=== PATIENT | male | born 1970 | race Two or more races ===

== ENCOUNTER 2024-05-06 11:43 | Emergency (ER) | payer MEDICAID, SELFPAY ==
--- NOTE | ~2024-05-06 | XR_ITS ---
EXAMINATION: XR CHEST CLINICAL INFORMATION: Cough, history of HIV. COMPARISON: Chest radiograph 05/17/2012. TECHNIQUE: 2 views of the chest were obtained. FINDINGS: Normal appearance of the cardiomediastinal silhouette. No focal consolidation, pleural effusion or pneumothorax. No acute osseous findings. XR/XR chest 2V IMPRESSION: No acute cardiopulmonary findings. Electronically signed by: Sofia Canales MD 05/06/2024 12:19 PM EDT
[2024-05-06 11:54] VITALS: BP 96/60; PULSE 65; RESP 16; TEMP 36.4; O2SAT 96; BMI 27.6
--- NOTE | 2024-05-06 12:01 | ED_ITS ---
HPI - General Adult General Chief complaint: Upper Respiratory Symptoms Stated complaint: sore throat Time Seen by Provider: 05/06/24 12:11 Source: patient and family Mode of arrival: ambulatory Limitations: no limitations History of Present Illness ED Provider: alphonso GUTIERREZ narrative: Patient is a 54-year-old male with history of HIV presenting to the emergency department with complaint of cough productive of brown sputum for the past 3 days as well as subjective fevers at night. Reports sick contacts at worship. Denies chest pain, palpitations, dyspnea. Denies smoking. Denies sore throat, ear pain, nasal congestion, nausea, vomiting, diarrhea. Has taken Tylenol for the fever. MD complaint: cough Onset (ago): day(s) Treatments prior to arrival: other Related Data Previous Rx's ?Medication ?Instructions ?Recorded benzonatate 100 mg capsule 100 mg PO TID PRN cough #20 caps 05/06/24 Allergies Allergy/AdvReac Type Severity Reaction Status Date / Time sulfamethoxazole Allergy Mild HIVES Verified 05/06/24 12:04 [From Bactrim] trimethoprim [From Bactrim] Allergy Mild HIVES Verified 05/06/24 12:04 Review of Systems Review of Systems: as per HPI. Yes all other systems are reviewed and are negative Constitutional: Constitutional: Reports as per HPI [facility] Social History Social History (System 01/26/24 @ 14:32 by Kacey Conklin) Advance Directives: No Advance Directives Information Provided: No Do you have a plan to hurt others: No Plan Physical Exam ED Vital Signs: Vital Signs - 24 hr 05/06/24 11:54 Temperature 97.6 F Pulse Rate 65 Respiratory Rate 16 Blood Pressure 96/60 Pulse Oximetry 96 Oxygen Delivery Method Room Air BMI result Body Mass Index 27.6 Vital signs have been reviewed and appear to be correct. Blood pressure normal. Heart rate normal. Respiratory rate normal. Temperature normal. Oxygen saturation normal. Const General: cooperative, healthy appearing and no acute distress Orientation/consciousness: oriented to person, oriented to place, oriented to time and patient oriented x3 Limitations: no limitations HENMT Head: Yes normocephalic and Yes atraumatic Ears: external ears normal General nose exam: Normal external nose present Face and sinus: Yes face symmetric Mouth: oropharynx normal and moist mucous membranes Throat: Yes uvula midline Eyes Pupils: Equal, round and reactive pupils present Neck Neck: Yes normal visual inspection and Yes supple Resp Effort & Inspection: normal respiratory effort and able to speak in complete sentences Auscultation: clear to auscultation bilaterally Cardio Rate: regular rate Rhythm: regular rhythm Heart sounds: S1 normal heart sound present and S2 normal heart sound present GI Palpation (GI): Soft to palpation and nontender Auscultation: normoactive bowel sounds General: Yes no CVA tenderness Back/Spine/Pelvis Back: no CVA tenderness Skin General skin exam: elasticity normal and turgor normal Neuro General: oriented to person, oriented to place, oriented to time, patient oriented x3, moves all extremities, no focal motor deficits and CN's II-XI intact bilaterally Cranial nerves: Yes Equal, round and reactive pupils present Cognition (Neuro): normal cognition Extrem General: Yes full ROM, Yes no pedal edema and Yes no calf tenderness Psych Mental Status: mental status grossly normal Affect: normal affect Thought process: Normal thought process present Course Course Course Narrative: This is an RME: Additional HPI, ROS, PE not included below will be deferred to primary provider. RME assessment and note performed by: Layne Dowell PA-C This is a 26-kchi-wht-male, with a hx of HIV, who presents to the ER with complaints of productive cough x 3 days. Reporting subjective fevers at night. No CP or SOB. no sick contacts. Plan: Xray, viral swabs Medical Decision Making Medical Decision Making MDM Narrative: Patient is a 54-year-old male with history of HIV presenting to the emergency department with complaint of cough productive of brown sputum for the past 3 days as well as subjective fevers at night. On exam patient is awake, A+Ox3, VS WNL, afebrile, normal neurological exam without focal deficits, physical exam findings as above. Given reported symptoms and physical exam findings, initial differential includes viral illness, bronchitis, pneumonia. Viral serology negative. X-ray chest notable for no evidence of pneumonia. My interpretation is in agreement with the radiologist's interpretation. Patient updated on results and all questions answered. Discussed with patient that symptoms are likely due to viral illness which will resolve on its own with time. Will send prescription for benzonatate for cough. Advised patient to ensure adequate rest and adequate fluid intake. Return precautions discussed at bedside. Patient verbalized understanding of and agreement plan. Differential Diagnosis Differential Diagnoses: The differential diagnosis associated with the presentation includes As per [facility]. Lab Data [facility] Lab Attestation statement: I reviewed the patient's lab results. As per [facility]. Labs: Lab Results 05/06/24 Range/Units 12:08 Influenza Type A (PCR) NEGATIVE (Negative) Influenza Type B (PCR) NEGATIVE (Negative) RSV RNA Qual (PCR) NEGATIVE (Negative) SARS-CoV-2 RNA (RT-PCR) NEGATIVE (Negative) Independent Interpretation I performed an independent interpretation of an: Plain X-Ray Interpretation: No evidence of pneumonia on chest x-ray Radiology Impression Discussion of test interpretation with radiology: I have reviewed the radiologist's reading. Radiologist Impression: XR/XR chest 2V IMPRESSION: No acute cardiopulmonary findings. External Record Review External record reviewed: Inpatient record, Office record and Outpatient record Prescription Management I considered prescription management with: Other Discharge Plan Discharge Clinical Impression: Viral infection Patient Disposition: Home, Self-Care Instructions: Viral Syndrome (ED) Additional Instructions: You were evaluated in the emergency department today for cough. Your Covid, flu, and rsv tests were all negative. Your x-ray did not show evidence of pneumonia. Your symptoms are likely related to a viral illness which will resolve on its own with time and rest. You should ensure adequate fluid intake, and can use Tylenol 650 mg or ibuprofen 600 mg every 6 hours as needed for fever or discomfort. You are being prescribed benzonatate for cough which you can take every 8 hours as needed. Please keep this medication out of the reach of children. Please follow-up with your primary care provider this week. Return to the emergency department if you develop chest pain, worsening shortness of breath, difficulty swallowing, fever 100.4? F or greater or any other concerning symptoms. Prescriptions: New benzonatate 100 mg capsule 100 mg PO TID PRN (Reason: cough) Qty: 20 0RF Print Language: Swedish
[2024-05-06 12:52] LABS: Influenza A PCR NEGATIVE (Negative); Influenza B PCR NEGATIVE (Negative); Resp Syncy Virus RNA Qual PCR NEGATIVE (Negative); SARS COV2 PCR INHOUSE NEGATIVE (Negative)
[2024-05-06 13:33] VITALS: BP 96/60; PULSE 65; RESP 16; TEMP 36.4; O2SAT 96
== END 2024-05-06 13:33 | disposition home or self-care (01) ==
PROVIDERS: Physician Assistant Medical; Emergency Provider Emergency Medicine Emergency Medical Services
DX: B34.9 Viral infection, unspecified (principal); R05.9 Cough, unspecified; R50.9 Fever, unspecified; B20 Human immunodeficiency virus [HIV] disease; Z03.818 Encounter for observation for suspected exposure to other biological agents ruled out
CPT/HCPCS: 0241U; 71046; 99282; 99283

== ENCOUNTER 2024-09-20 12:01 | Emergency (ER) | payer MEDICAID, SELFPAY ==
--- NOTE | ~2024-09-20 | XR_ITS ---
CLINICAL HISTORY: pain 1 view abdomen Comparison: None Findings: No pneumoperitoneum or pneumatosis. No abnormal calcifications. No acute fractures. IMPRESSION: Normal bowel gas pattern This document has been electronically signed by: Bryan Rivera MD on 09/21/2024 01:26:42
[2024-09-20 12:30] VITALS: BP 102/65; PULSE 60; RESP 20; TEMP 36.5; O2SAT 96; BMI 28.4
[2024-09-20 13:11] LABS: MANUAL DIFF FLAG NO
[2024-09-20 13:14] LABS: Basophils Percent Auto 0.2 % (0-2); Eosinophils Absolute Auto 0.1 X10*3/uL (0.0-0.4); Hematocrit 45.2 % (42.0-52.0); Imm Gran Abs Auto 0.01 X10*3/uL (0.00-0.03); Imm Gran Pct Auto 0.2 % (0.0-0.4); Lymphocytes Absolute Auto 2.2 X10*3/uL (1.2-4.9); Lymphocytes Percent Auto 36.3 % (20-40); Mean Corpuscular HGB Conc 33.2 g/dl (31.0-36.0); Mean Corpuscular Volume 75.5 fL (80.0-98.0); Mean Platelet Volume 9.6 fL (9.4-12.4); Monocytes Absolute Auto 0.9 X10*3/uL (0.1-1.2); Monocytes Percent Auto 14.3 % (2-11); Neutrophils Absolute Auto 2.8 x10*3/uL (2.0-8.3); Platelet Count 209 X10*3/uL (160-400); Red Blood Count 5.99 X10*6/uL (4.60-5.80); Red Cell Distribution Width 13.1 % (11.0-16.0); White Blood Count 5.9 X10*3/uL (4.8-10.8)
[2024-09-20 13:38] LABS: Alanine Aminotransferase 33 U/L (0-40); Albumin Level 4.3 g/dL (3.5-5.0); Alkaline Phosphatase 61 U/L (39-117); Anion Gap 11 (12-20); Aspartate Amino Transferase 44 U/L (5-37); Bilirubin Direct 0.1 mg/dL (0.0-0.5); Bilirubin Total 0.5 mg/dL (0.0-1.0); Blood Urea Nitrogen 15 mg/dL (9-16); Calcium 9.1 mg/dL (8.4-10.2); Carbon Dioxide 26 mmol/L (22-29); Chloride 106 mmol/L (96-108); Creatinine Clr Calc Pharmacy 74.2; Estimated Glomerular Filt Rate > 60; Glucose Random 87 mg/dL (60-115); Lipase 33 U/L (8-78); Potassium 4.2 mmol/L (3.3-5.1); Sodium 139 mmol/L (135-145); Total Protein 7.8 g/dL (6.5-8.0)
[2024-09-20 13:51] LABS: Influenza A PCR NEGATIVE (Negative); Influenza B PCR NEGATIVE (Negative); Resp Syncy Virus RNA Qual PCR NEGATIVE (Negative); SARS COV2 PCR INHOUSE NEGATIVE (Negative)
--- OUTSIDE RECORDS SUMMARY | 2024-09-20 14:34 | XMS_ITS | Encounter Summary ---
Author Organization [facility] Address [address] [place] [address] Care Team Providers Care On Line Csr Name Role Phone Zari Gibson PA-C Primary Care Provider [phone] Encounter Details Date Type Department Care Team ([facility] st Contact Info) Description 06/11/2023 / TELEPHONE [facility], [facility] [address] [place] [phone] Kyrie Muniz [address] [place] [address] Opioid type dependence, unspecified (Primary Dx); Former smoker; Posttraumatic stress disorder Social History Tobacco Use Types Packs/Day Years Used Date Smoking Tobacco: Former Cigarettes 0.5 43.1 S tarted: 08/09/1981 Smokeless Tobacco: Never Alcohol Use Standard Drinks/Week Comments Not Currently 0 (1 standard drink = 0.6 oz pur e alcohol) Social Connections Answer Date Recorded Connectedness 0 12/29/2022 Financial Resource Strain Answer Date R ecorded Financial Resource Strain 0 2022 Stress Answer Date Recorded Stress 0 12/29/2022 Physical Activity Answer Date Recorded Physical Activity 0 03/27/2022 Food Insecurity Answer Date Recorded Food 0 04/11/2022 Transportation Needs Answer Date Record ed Transportation 0 12/29/2022 Housing Stability Answer Date Recorded Housing 0 12/29/2022 Safety and Environment Answer Date Jonatan rded Safety 0 04/11/2022 Utilities Answer Date Recorded Utilities 0 04/11/2022 Employment Answer Date Recorded Stress 0 12/29/2022 Sex and Gender Information Value Date Recorded Sex Assigned at Male 04/11/2022 7:58 AM PDT Legal Sex Male 10:14 AM PDT Gender Identity Male 04/11/2022 7:58 AM PDT Sexual Orientation Straight 04/28/2023 7: 59 AM PDT documented as of this encounter Nursing Notes * Kyrie Muniz - 06/11/2023 2:18 PM EDT 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 Plan of Treatment Upcoming Encounters Date Type Department Care Team (Late st Contact Info) Description 09/21/2024 2:00 PM EST BH/[facility] Visits [address] [phone] Patti Whitaker [address] [place] [id number] 09/26/2024 3:30 PM EST BH/[facility] Visits [address] [phone] Matthew Dalal LCSW [address] [place] [phone] 10/24/2024 2:00 PM EDT BH/[facility] Visits [address] [phone] [address] documented as of this encounter Visit Diagnoses Diagnosis Opioid type dependence, unspecified- Primary Former smoker Personal history of tobacco use, presenting hazards to health Posttraumatic stress disorder documented in this encounter Additional Health Concerns Assessment Noted Time PHQ-9 Depression Total Score: 5 09/24/19 23 10:00 AM PST documented as of this encounter Care Teams On Line Csr Relationship Specialty Start Date End Date Zari Gibson PA-C [address] [place] [id number] PCP - General Internal Medicine 04/07/22 documented as of this encounter
--- OUTSIDE RECORDS SUMMARY | 2024-09-20 14:34 | XMS_ITS | Clinical Summary ---
Author Organization [facility] Address [address] [place] [address] Care Team Providers Care Junior Accountant Bookkeeper Name Role Phone Zari Gibson PA-C Primary Care Provider Source Comments PLEASE NOTE, if this patient is a minor, it may be UNLAWFUL to discuss sensitive information that is contained in these records (such as FAMILY PLANNING, MENTAL HEALTH or SUBSTANCE ABUSE) with the minor patient's parent or other person without the patient's specific authorization.[facility] Allergies Active Allergy Reactions Criticality Noted Date Comments Aztreonam 10/12/2022 Dhqgsbovc-Iumnlhuvftpz-Ouiskuc Rash Medium 04/16 Erythromycin 10/12/2022 Hydrochlorothiazide 10/12/2022 Other reaction(s): unknown Latex 10/12/2022 Nystatin 10/12/2022 Other reaction(s): Allergy to sulfa drugs Penicillin 10/12/2022 Other reaction(s): Rash Sulfa (Sulfonamide Antibiotics) Unknown 03/10 Zidovudine Rash Low 12/28/2023 Medications diclofenac sodium (VOLTAREN) 1 % gelIndications:A rthralgia, unspecified joint Apply 2 g topically 2 (two) times daily 100 g 1 2 Active sofosbuvir-velpa tasvir (EPCLUSA) 400-100 mg tab Take 1 Tablet by mouth once daily 28 Tablet 2 3 Active nicotine (NICODERM CQ) 21 mg/24 hr patchIndications :Tobacco use Place 1 Patch onto the skin once daily (every 24 hours) 28 Patch 3 Active nicotine, polacrilex, (NICORETTE) 4 mg gumIndications:T obacco use Take 1 Each by mouth as needed for smoking cessation 110 Each 3 Active clotrimazole-bet amethasone (LOTRISONE) 1-0.05 % creamIndications :Rash Apply topically 2 (two) times daily 15 g 3 Active tetrahydrozoline 0.05 % ophthalmic solutionIndicati ons:Dry eyes Place 1 Drop into both eyes 4 (four) times daily as needed for irritation 15 mL 3 Active triamcinolone (KENALOG) 0.025 % creamIndications :Rash Apply topically 2 (two) times daily 15 g 3 Active clotrimazole (LOTRIMIN) 1 % creamIndications :Tinea cruris Apply a small amount to groin area BID 30 g 2 3 Active emollient (DERMABASE,VANIC REAM) creaIndications: Dry skin Apply 2 g topically as needed (dry skin) 453 g 6 3 Active docusate sodium (COLACE) 100 mg capsuleIndicatio ns:Constipation, unspecified constipation type Take 1 Capsule by mouth 2 (two) times daily 180 Capsule 3 Active albuterol HFA 90 mcg/actuation inhalerIndicatio ns:SOB (shortness of breath) Inhale 2 Puffs into the lungs every 4 to 6 (four to six) hours as needed for shortness of breath 6.7 g 1 3 Active tamsulosin (FLOMAX) 0.4 mg 24 hr capsuleIndicatio ns:Benign prostatic hyperplasia with lower urinary tract symptoms, symptom details unspecified Take 1 Capsule by mouth nightly at bedtime 90 Capsule 1 3 Active naloxone (NARCAN) 4 mg/actuation nasal sprayIndications :Opioid use disorder Place 1 [place] into the nostril(s) as needed for opioid reversal 1 Each 5 4 Active ciclopirox (PENLAC) 8 % solutionIndicati ons:Onychomycosi s Apply topically nightly at bedtime 6.6 mL 2 4 Active FLUoxetine (PROZAC) 10 mg capsuleIndicatio ns:Mood disorder (HCC-CMS) Take 1 Capsule by mouth once daily for 180 days 30 Capsule 5 4 Active QUEtiapine (SEROQUEL) 50 mg tabletIndication s:Mood disorder (HCC-CMS) Take 1 Tablet by mouth nightly at bedtime for 180 days 30 Tablet 5 4 Active abacavir-doluteg ravir-lamivud (TRIUMEQ) 600-50-300 mg tabIndications:H IV infection, unspecified symptom status (HCC-CMS) Take 1 Tablet by mouth once daily 30 Tablet 11 4 Active buprenorphine-na loxone (SUBOXONE) 8-2 mg SL filmIndications: Opioid use disorder Place 1 Strip under the tongue 3 (three) times daily 84 Each 5 Active buprenorphine-na loxone (SUBOXONE) 8-2 mg SL filmIndications: Opioid use disorder Place 1 Strip under the tongue 3 (three) times daily 84 Each 4 025 Discontin ued(Reord er (E-Cancel Not Sent)) Active Problems Problem Noted Date Diagnosed Date BPH (benign prostatic hyperplasia) 07/09/2023 Hepatitis B core antibody positive 08/21/2022 History of tobacco use 08/21/2022 Chronic hepatitis C without hepatic coma (HCC-CMS), treatment experienced 06/2022. genotype 3, F3 disease, SVR 05/202306/23/2022 Overview (06/23/2022): HCV treatment initiation Patient: [facility]: [id number] Age: 46 years Sex: Male : 1970 Associated Diagnoses: None Author: Gerardo VANEGAS, Malissa Samano Visit Information History of Present Issues/Illness pt here for f/up HCV GT 3, F2 Fibrosure, VL > 695,000 was due to start HCV treatment last week but balked at having weekly f/up appts linked to suboxone: was not sure he wanted treatment after all pt here today having decided he is ready for HCV treatment, willing to come weekly for f/up w/ suboxone refills weekly during course of treatment meds discussed with patient regimen is Sovaldi 400 mg QD+ daclasvir 60 mg QD taken together once daily pt urged to take at same time as either HAART or suboxone to improve adherence med boc given with one week fillof medication plus 2 day emergency supply med box and meds reviewed pt given suboxone script x 1 week plan: RTC 1 week Opioid type dependence, unspecified 04/06/2022 HIV infection ([facility]) 09/[birth year]/1981 Resolved Problems Problem Noted Date Diagnosed Date Resolved Date Candidiasis of mouth 10/12/2022 023 Dysphagia 10/12/2022 10/12/2022 Genital herpes simplex 10/12/202210/12 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 0 10/12/2022 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 10/12/2022 Encounters Date Type Department Care Team Description 08/29/2024 Travel 08/24/2024 / TELEPHONE [address] [phone] Patti Whitaker Opioid type dependence, unspecified (Primary Dx); Former smoker; Posttraumatic stress disorder; Uncomplicated opioid dependence ([facility]); Encounter for long-term opiate analgesic use 08/03/2024 2:45 PM EST / Visits [address] [address] Matthew Dalal LCSW Opioid type dependence, unspecified (Primary Dx); Former smoker; Posttraumatic stress disorder; Uncomplicated opioid dependence ([facility]); Encounter for long-term opiate analgesic use 07/27/2024 / TELEPHONE [address] [address] Patti Whitaker Opioid type dependence, unspecified (Primary Dx); Former smoker; Posttraumatic stress disorder; Uncomplicated opioid dependence ([facility]); Encounter for long-term opiate analgesic use 07/25/2024 11:00 AM EST Immunizations [address] [address] Ambreen Wheeler RN Immunization due (Primary Dx) 07/25/2024 Travel 06/30/2024 10:30 AM EST / Visits [address] [address] Lynne Choudhury RN Uncomplicated opioid dependence ([facility]) (Primary Dx); Opioid type dependence, unspecified; Former smoker; Posttraumatic stress disorder; Encounter for long-term opiate analgesic use 06/30/2024 Travel 06/29/2024 / TELEPHONE [facility] [address] [place] [address] Patti Whitaker Opioid type dependence, unspecified (Primary Dx); Former smoker; Posttraumatic stress disorder; Uncomplicated opioid dependence (HCC-CMS); Encounter for long-term opiate analgesic use 06/22/2024 Case Management Visit [id number] [place] [address] Patricia Gramajo MA 06/20/2024 1:45 PM EST / Visits [facility] [address] [place] [address] Matthew Dalal LCSW Opioid type dependence, unspecified (Primary Dx); Former smoker; Posttraumatic stress disorder; Uncomplicated opioid dependence ([facility]); Encounter for long-term opiate analgesic use 06/20/2024 Travel from Last 3 Months Immunizations Name Administration Dates Next Due Flu, Preservative Free 05/06/2022 INFLUENZA, SEASONAL, INJECTABLE 08/25/2017,06/02,07/09/2011 Influenza (FLUBLOK),recombinant,injectable,preservati ve Free 05/26/2024 MENINGOCOCCAL ACWY, UNSPECIFIED 10/18/2017,08/25 PNEUMOCOCCAL CONJUGATE PCV 13 08/25/2017 PNEUMOCOCCAL POLYSACCHARIDE PPV23 05/06/2022,,10/16/2006 [facility] State Funded Flu Vaccine 05/03/2012 TDAP 08/25/2017,05/12/2012 Td (adult) unspecified 10/24/2009 ZOSTER VACCINE, RECOMBINANT (SHINGRIX) ,05/26/2024 Family History Medical History Relation Name Comments Alcohol/Drug Abuse Brother Depression Brother Alcohol/Drug Abuse Father Diabetes Father Stomach Cancer Maternal Aunt Alcohol/Drug Abuse Maternal Uncle Dementia Maternal Uncle Lung Cancer Maternal Uncle Alzheimer's Disease Mother Hypertension Mother Alcohol/Drug Abuse Paternal Uncle Relation Name Status Comments Brother Father Alive Maternal Aunt Alive Maternal Uncle Alive Mother Alive Paternal Uncle Social History Tobacco Use Types Packs/Day Years Used Date Smoking Tobacco: Former Cigarettes 0.5 43.1 S tarted: 08/09/1981 Smokeless Tobacco: Never Tobacco Cessation:Counseling Given: Yes Alcohol Use Standard Drinks/Week Comments Not Currently [...] Orientation Straight 04/28/2023 7: 59 AM PDT COVID-19 Exposure Response Date Recorded In the last 10 days, have yo u been in contact with someone who was confirmed or suspected to have Coronavirus/COVID-19? No / Unsure 08/29/2024 3:14 PM EST Last Filed Vital Signs Vital Sign Reading Time Taken Comments Blood Pressure 125/82 08/29/2024 4:21 PM EST Pulse 84 08/29/2024 4:21 PM EST Temperature 36.6 ??C (97.9 ??F) 05/26/2024 9:07 AM ED T Respiratory Rate 14 05/26/2024 9:07 AM EDT Oxygen Saturation 97% 08/29/2024 4:21 PM EST Inhaled Oxygen Concentration - - Weight 68.5 kg (151 lb) 05/26/2024 9:07 AM EDT Height 160 cm (5' 3 ) 05/26/2024 9:07 AM EDT Body Mass Index 26.75 05/26/2024 9:07 AM EDT Plan of Treatment Upcoming Encounters Date Type Department Care Team (Late st Contact Info) Description 09/21/2024 2:00 PM EST BH/MH Visits [facility] [address] [place] [phone] Sherman Patti [address] [place] [phone] 09/26/2024 3:30 PM EST BH/MH Visits [facility] [address] [place] [address] Matthew Dalal LCSW [address] [place], [place] [phone] 10/24/2024 2:00 PM EDT BH/MH Visits [facility] [address] [place] [phone] Etta [place], [place] [address] [place] [address] Health Maintenance Due Date Last Done Comments CT Colonography 2015 Colonoscopy 2015 Flexible Sigmoidoscopy 2015 Imm-Meningococcal (3 - Risk 2-dose series) 10/18/2022 10/18/2017, 08/25/2017 FIT/gFOBT 10/08/2023 10/07/2022 [id number] ( season) 2024 Lipid Screening 05/19/2024 05/19/2023, 07/2 02/2023, 09/24/2022, Additional history exists Alcohol and Drug Screen 08/09/2024 10/01/19 24, 09/24/2022, 04/11/2022 Depression Annual Screen 08/09/2024 09/07/2023 Annual Preventive Care Visit 10/01/2024 10/01/2023, 09/24/2022 Tobacco Screening 10/01/2024 10/01/2023, , 08/07/2022 LTBI Screening (#1) 12/16/2024 12/17/2023, 03/04/2023, 04/16/2022, Additional history exists Syphilis Screening 12/16/2024 12/17/2023, 0 03/04/2023, 04/16/2022 Diabetes Screening 05/10/2025 05/10/2024, 0 12/17/2023, 10/21/2023, Additional history exists Hypertension Screening (#1) 08/29/2025 Colorectal Cancer Screening 10/07/2025 Fecal DNA 10/07/2025 10/07/2022 Imm-Pneumococcal (4 of 4 - P CV20 or PCV21) 05/06/2027 05/06/2022, 08/25/2017, 04/23/2009, Additional history exists Imm-DTaP/Tdap/Td (3 - Td or Tdap) 08/25/2027 08/25/2017, 05/12/2012, 10/24/2009 Hepatitis B Screening Completed 12/17/2023 , 06/23/2023, 05/20/2022, Additional history exists Imm-Influenza Completed 05/26/2024, 04/10, 08/25/2017, Additional history exists Imm-Zoster, Recombinant Completed 07/25/2024, 05/26 Imm-Hepatitis A Discontinued Imm-Hepatitis B Discontinued Imm-MMR Discontinued Procedures Procedure Name Priority Date/Time Associated Diagnosis Comments DRUG MONITORING TEMPLATE Routine 08/29/2024 4:21 PM EST DRUG MONITORING TEMPLATE Routine 08/29/2024 4:21 PM EST DRUG MONITORING, PANEL 8 WITH CONFIRMATION, URINE Routine 08/29/2024 4:21 PM EST Uncomplicated opioid dependence (HCC-CMS) DRUG MONITORING, FENTANYL, WITH CONFIRMATION, URINE Routine 08/29/2024 4:21 PM EST Uncomplicated opioid dependence (HCC-CMS) DRUG MONITORING, BARBITURATES, WITH CONFIRMATION, URINE Routine 08/29/2024 4:21 PM EST Uncomplicated opioid dependence (HCC-CMS) HIV-1 RNA QUANT REAL TIME PCR, PLASMA Routine 07/25/2024 10:12 AM EST HIV infection, unspecified symptom status (HCC-CMS) LYMPHOCYTE SUBSET PANEL 5 Routine 07/25/2024 10:12 AM EST HIV infection, unspecified symptom status (HCC-CMS) BLOOD COUNT COMPLETE AUTO&AUTO DIFRNTL WBC Routine 07/25/2024 10:12 AM EST HIV infection, unspecified symptom status (HCC-CMS) DRUG MONITORING TEMPLATE Routine 06/30/2024 10:31 AM EST DRUG MONITORING TEMPLATE Routine 06/30/2024 10:31 AM EST DRUG MONITORING, PANEL 8 WITH CONFIRMATION, URINE Routine 06/30/2024 10:31 AM EST Uncomplicated opioid dependence (HCC-CMS) DRUG MONITORING, FENTANYL, WITH CONFIRMATION, URINE Routine 06/30/2024 10:31 AM EST Uncomplicated opioid dependence (HCC-CMS) DRUG MONITORING, BARBITURATES, WITH CONFIRMATION, URINE Routine 06/30/2024 10:31 AM EST Uncomplicated opioid dependence (HCC-CMS) COMPREHENSIVE METABOLIC PANEL Routine 05/10/2024 1:18 PM EDT HIV infection, unspecified symptom status (HCC-CMS) SYPHILIS ANTIBODY CASCADING REFLEX Routine 12/17/2023 2:44 PM EDT Chronic hepatitis C without hepatic coma (HCC-CMS), treatment experienced 06/2022. genotype 3, F3 disease, SVR 05/2023 IADNA HEPATITIS B VIRUS QUANTIFICATION Routine 12/17/2023 2:44 PM EDT Hepatitis B core antibody positive QUANTIFERON-TB GOLD PLUS Routine 12/17/2023 2:44 PM EDT Chronic hepatitis C without hepatic coma (HCC-CMS), treatment experienced 06/2022. genotype 3, F3 disease, SVR 05/2023 LIPID PANEL Routine 05/19/2023 3:18 PM EDT Routine general medical examination at a health care facility COLOGUARD Routine 10/07/2022 3:00 AM EST Colon cancer screening from Last 3 Months or Most Recently Relevant to Health Maintenance Results * (ABNORMAL) DRUG MONITORING, PANEL 8 WITH CONFIRMATION, URINE (08/29/2024 4:21 PM EST) Only the most recent of2 resultswithin the time period is included. AMPHETAMINES NEGATIVE <500 [facility] BENZODIAZEPINES NEGATIVE <100 QUES [employer] BUPRENORPHINE POSITIVE(A) <5 QUES [employer] MEDMATCH BUPRENORPHINE PENDING [facility] BUPRENORPHINE 377(H) <2 ng/mL [facility] [employer] MEDMATCH BUPRENORPHINE PENDING [facility] NORBUPRENORPHINE 814(H) <2 ng/mL [facility] [employer] MEDMATCH NORBUPRENORPHINE PENDING [facility] NALOXONE 1,116(H) <2 ng/mL [facility] medMATCH Naloxone PENDING QU EST [employer] Buprenorphine Comments See Note [facility] Comment:See Buprenorphine No carlos, LDT Notes COCAINE METABOLITE NEGATIVE <150 Q [facility] [employer] 6 ACETYLMORPHINE NEGATIVE <10 QUE [employer] [facility] MARIJUANA METABOLITE NEGATIVE <20 [facility] MDMA NEGATIVE <500 [facility] OPIATES NEGATIVE <100 [facility] OXYCODONE NEGATIVE <100 [facility] CREATININE 130.5 > or = 20.0 mg/dL [facility] PH 6.2 4.5 - 9.0 [facility] OXIDANT NEGATIVE <200 [facility] ALCOHOL METABOLITES NEGATIVE <500 [facility] Urine Urine specimen / Unknown 08/29/2024 4:21 PM EST 08/30/2024 4:59 AM EST Zari Gibson PA-C LAB - NO BLOOD DRAW Edited R esult - Final [facility] [address] [address], [facility] [address] [place] [address] * DRUG MONITORING, FENTANYL, WITH CONFIRMATION, URINE (08/29/2024 4:21 PM EST) Only the most recent of2 resultswithin the time period is included. Fentanyl NEGATIVE <0.5 [facility] [employer] Urine Urine specimen / Unknown 08/29/2024 4:21 PM EST 08/30/2024 4:59 AM EST Zari Gibson PA-C LAB - NO BLOOD DRAW Final Re sult [facility] [address] [address], [place] [facility] [address] [address] * DRUG MONITORING, BARBITURATES, WITH CONFIRMATION, URINE (08/29/2024 4:21 PM EST) Only the most recent of2 resultswithin the time period is included. BARBITURATES NEGATIVE <300 [facility] [employer] [facility] Urine Urine specimen / Unknown 08/29/2024 4:21 PM EST 08/30/2024 4:59 AM EST Zari Gibson PA-C LAB - NO BLOOD DRAW Final Re sult Performing Organization Address City/[facility]/ZIP Co de Phone Number [facility] [address] [address], [place] [facility] [address] [address] * (ABNORMAL) LYMPHOCYTE SUBSET PANEL 5 (07/25/2024 10:12 AM EST) % CD4 (HELPER CELLS) 12(L) 30 - 61 % [facility]/N ICHOLS [place] ABSOLUTE CD4+ CELLS 226(L) 490 - 1,740 cells/uL [facility]/N [facility] [place] ABSOLUTE LYMPHOCYTES 1,891 850 - 3,900 cells/uL [facility]/N ICHOLS [place] Blood Blood / Unknown 07/25/2024 1 0:12 AM EST 07/25/2024 10:12 AM EST Narrative [facility] [place] - 07/28/2024 5:47 PM EST FASTING:NO Mattie Mtz PA-C LAB - BLOOD DRAW Final Resul t [facility] [employer] [facility] [id number] [facility] GILBERTGreenLink NetworksMULESHOE, [place] , [place] [facility]/PIRES [place] [address] [place], [place] * (ABNORMAL) HIV-1 RNA QUANT REAL TIME PCR, PLASMA (07/25/2024 10:12 AM EST) Pathologist [facility] [place] COPIES/ML 2,150(H) NOT DETECTED copies/mL [facility] LOG COPIES/ML 3.33(H) NOT DETECTED Log copies/mL [facility] Comment: This test was performed using Real-Time Polymerase Chain Reaction. Reportable Range: 20 copies/mL to 10,000,000 copies/mL (1.30 log copies/mL to 7.00 log copies/mL). Blood Blood / Unknown 07/25/2024 1 0:12 AM EST 07/25/2024 10:12 AM EST Narrative [facility] - 07/28/2024 5:47 PM EST FASTING:NO Mattie Mtz PA-C LAB - BLOOD DRAW Edited Resu lt - Final [facility] [address] [address], [facility] [address] [place] [address] * (ABNORMAL) BLOOD COUNT COMPLETE AUTO&AUTO DIFRNTL WBC (07/25/2024 10:12 AM EST) [facility] WHITE BLOOD CELL COUNT 6.4 3.8 - 10.8 Thousand/ uL [facility] RED BLOOD CELL COUNT 5.64 4.20 - 5.80 Million/u L [facility] HEMOGLOBIN 14.3 13.2 - 17.1 g/dL [facility] HEMATOCRIT 44.7 38.5 - 50.0 % [facility] MCV 79.3(L) 80.0 - 100.0 fL [facility] MCH 25.4(L) 27.0 - 33.0 pg [facility] MCHC 32.0 32.0 - 36.0 g/dL [facility] Comment: For adults, a slight decrease in the calculated MCHC value (in the range of 30 to 32 g/dL) is most likely not clinically significant; however, it should be interpreted with caution in correlation with other red cell parameters and the patient's clinical condition. RDW 13.7 11.0 - 15.0 % [facility] PLATELET COUNT 191 140 - 400 Thousand/ uL [facility] MPV 10.6 7.5 - 12.5 fL [facility] ABSOLUTE NEUTROPHILS 2,931 1,500 - 7,800 cells/uL [facility] ABSOLUTE LYMPHOCYTES 2,266 850 - 3,900 cells/uL [facility] ABSOLUTE MONOCYTES 1,094(H) 200 - 950 cells/uL [facility] ABSOLUTE EOSINOPHILS 90 15 - 500 cells/uL [facility] ABSOLUTE BASOPHILS 19 0 - 200 cells/uL [facility] NEUTROPHILS PCT 45.8 % QUES [employer] LYMPHOCYTES 35.4 % [facility] MONOCYTES 17.1 % [facility] EOSINOPHILS 1.4 % [facility] BASOPHILS 0.3 % [facility] Blood Blood / Unknown 07/25/2024 1 0:12 AM EST 07/25/2024 10:12 AM EST Narrative [facility] - 07/28/2024 5:47 PM EST FASTING:NO us Mattie Mtz PA-C LAB - BLOOD DRAW Edited Resu lt - Final [facility] [address] [address], [facility] [address] [place] [address] * COMPREHENSIVE METABOLIC PANEL (05/10/2024 1:18 PM EDT) GLUCOSE 80 65 - 99 mg/dL [facility] Comment: ?Fasting reference interval UREA NITROGEN (BUN) 16 7 - 25 mg/dL [facility] CREATININE (blood) 0.92 0.70 - 1.30 mg/dL [facility] EGFR 99 > OR = 60 mL/min/1. 73m2 [facility] BUN/CREATININE RATIO SEE NOTE: [facility] Comment: ?? Not Reported: BUN and Creatinine are within ?? reference range. ? SODIUM 140 135 - 146 mmol/L [facility] POTASSIUM 4.3 3.5 - 5.3 mmol/L [facility] CHLORIDE 102 98 - 110 mmol/L [facility] CARBON DIOXIDE 26 20 - 32 mmol/L [facility] CALCIUM 9.2 8.6 - 10.3 mg/dL [facility] PROTEIN, TOTAL 7.0 6.1 - 8.1 g/dL [facility] ALBUMIN 4.3 3.6 - 5.1 g/dL [facility] GLOBULIN 2.7 1.9 - 3.7 g/dL (calc) [facility] ALBUMIN/GLOBULI N RATIO 1.6 1.0 - 2.5 (calc) [facility] BILIRUBIN, TOTAL 0.3 0.2 - 1.2 mg/dL [facility] ALKALINE PHOSPHATASE 64 35 - 144 U/L [facility] AST 26 10 - 35 U/L [facility] ALT 30 9 - 46 U/L [facility] Blood Blood / Unknown 05/10/2024 1 :18 PM EDT 05/10/2024 1:19 PM EDT us Mattie Mtz PA-C LAB - BLOOD DRAW Edited Resu lt - Final [facility] [address] [address], [employer] [address] [address] * QUANTIFERON-TB GOLD PLUS (12/17/2023 2:44 PM EDT) [facility] QUANTIFERON NEGATIVE NEGATIVE [facility] Comment: Negative test result. M. tuberculosis complex infection unlikely. NIL 0.04 IU/mL [facility] MITOGEN-NIL 9.14 IU/mL [facility] TB1-NIL 0.02 IU/mL [facility] TB2-NIL 0.03 IU/mL [facility] Comment: The Nil tube value reflects the background interferon gamma immune response of the patient's blood sample. This value has been subtracted from the patient's displayed TB and Mitogen results. Lower than expected results with the Mitogen tube prevent false-negative Quantiferon readings by detecting a patient with a potential immune suppressive condition and/or suboptimal pre-analytical specimen handling. The TB1 Antigen tube is coated with the M. tuberculosis-specific antigens designed to elicit responses from TB antigen primed CD4+ helper T-lymphocytes. The TB2 Antigen tube is coated with the M. tuberculosis-specific antigens designed to elicit responses from TB antigen primed CD4+ helper and CD8+ cytotoxic T-lymphocytes. For additional information, please refer to https://education.iCAD/faq/IGC113 (This link is being provided for informational/ educational purposes only.) Blood Blood / Unknown 12/17/2023 2 :44 PM EDT 12/17/2023 2:45 PM EDT Narrative [facility] - 12/27/2023 7:02 PM EDT FASTING:NO PATIENT UNABLE TO VOID; ADVISED TO RETURN FOR COLLECTION. us Mattie Mtz PA-C LAB - BLOOD DRAW Edited Resu lt - Final Performing Organization Address [facility] de Phone Number [facility] [address] [address], [employer] [address] [address] * SYPHILIS ANTIBODY CASCADING REFLEX (12/17/2023 2:44 PM EDT) T. PALLIDUM AB, EIA NEGATIVE NEGATIVE [facility] Comment: No antibodies to T. pallidum (the agent causing syphilis) were detected in the specimen. This result, however, does not exclude very recent T. pallidum infection; testing of a second specimen, collected 2-4 weeks after this specimen, is recommended if the index of suspicion for recent infection is high. Blood Blood / Unknown 12/17/2023 2 :44 PM EDT 12/17/2023 2:45 PM EDT Narrative [facility] - 12/27/2023 7:02 PM EDT FASTING:NO PATIENT UNABLE TO VOID; ADVISED TO RETURN FOR COLLECTION. us Mattie Mtz PA-C LAB - BLOOD DRAW Edited Resu lt - Final Performing Organization Address [facility] de Phone Number [facility] [address] [address], [place] [facility] [address] [address] * IADNA HEPATITIS B VIRUS QUANTIFICATION (12/17/2023 2:44 PM EDT) [facility] HEPATITIS B VIRAL DNA NOT DETECTED NOT DETECTED [facility] HEPATITIS B VIRUS DNA NOT DETECTED NOT DETECTED [facility] Comment: This test was performed using Real-Time Polymerase Chain Reaction. Reportable Range: 10 IU/mL to 1,000,000,000 IU/mL. (1.00 Log IU/mL to 9.00 Log IU/mL). Blood Blood / Unknown 12/17/2023 2 :44 PM EDT 12/17/2023 2:45 PM EDT Narrative [facility] - 12/27/2023 7:02 PM EDT FASTING:NO PATIENT UNABLE TO VOID; ADVISED TO RETURN FOR COLLECTION. us Mattie Mtz PA-C LAB - BLOOD DRAW Edited Resu lt - Final [facility] [address] [address], [facility] [address] [address] * (ABNORMAL) LIPID PANEL (05/19/2023 3:18 PM EDT) [facility] CHOLESTEROL, TOTAL 186 <200 mg/dL [facility] HDL CHOLESTEROL 50 > OR = 40 mg/dL [facility] TRIGLYCERIDES 238(H) <150 mg/dL [facility] Comment: If a non-fasting specimen was collected, consider repeat triglyceride testing on a fasting specimen if clinically indicated. Martha et al. J. of Clin. Lipidol. 2015;9:129-169. LDL-CHOLESTEROL 100(H) 99 mg/dL (calc) [facility] Comment: Reference range: <100 Desirable range <100 mg/dL for primary prevention; ?? <70 mg/dL for patients with CHD or diabetic patients with > or = 2 CHD risk factors. LDL-C is now calculated using the Arjun calculation, which is a validated novel method providing better accuracy than the Friedewald equation in the estimation of LDL-C. Tremayne SILVERIO et al. KIRSTEN. 2013;310(19): 3281-6688 (http://education.Aetel.inc (Droppy).[employer]/faq/PZM273) CHOL/HDLC RATIO 3.7 <5.0 (calc) [facility] NON-HDL CHOLESTEROL 136(H) <130 mg/dL (calc) [facility] Comment: For patients with diabetes plus 1 major ASCVD risk factor, treating to a non-HDL-C goal of <100 mg/dL (LDL-C of <70 mg/dL) is considered a therapeutic option. Blood Blood / Unknown 05/19/2023 3 :18 PM EDT 05/19/2023 3:19 PM EDT Linnea Reyna MEMS DEVICE SCIENTIST-C LAB - BLOOD DRAW Final Re sult Performing Organization Address [facility]/ZIP Co de Phone Number [facility] [address] [address], [facility] [address] [phone] * COLOGUARD (10/07/2022 3:00 AM EST) Stool Stool specimen / Unknown 10/07/2022 3:00 AM EST Zari Gibson PA-C LAB - NO BLOOD DRAW Edited R esult - Final Performing Organization Address City/[facility]/ZIP Co de Phone Number [facility] [address] [place] [address], [facility] [address] [facility] [id number] [place] [address], from Last 3 Months or Most Recently Relevant to Health Maintenance Insurance [facility] [employer] [address] ACO Care Teams Junior Accountant Bookkeeper Relationship Specialty Start Date End Date Zari Gibson PA-C [address] [place] [id number] PCP - General Internal Medicine 04/07/22
--- OUTSIDE RECORDS SUMMARY | 2024-09-20 14:34 | XMS_ITS | Clinical Summary ---
Author Organization [facility] ity Address [address] [place] [address] Care Team Providers Care Truck Repair Service Estimator Name Role Phone Unavailable Primary Care Provider Unavailabl e Social History Tobacco Use Types Packs/Day Years Used Date Smoking Tobacco: Never Assessed Sex and Gender Information Value Date Recorded Sex Assigned at Not on file Legal Sex Male 11:28 PM EST Gender Identity Not on file Sexual Orientation Not on file Plan of Treatment Health Maintenance Due Date Last Done Comments DTaP,Tdap,and Td Vaccines (1 - Tdap) 1989 Hepatitis B Vaccines (1 of 3 - 19+ 3-dose series) 1989 Zoster Vaccines (1 of 2) 01/21/2020 Cholesterol Screening (Lipid Panel) 07/12/2022 Colorectal Cancer Screening: Colonoscopy 07/12/2022 Depression Screening 07/12/2022 HIV Screening 07/12/2022 Hepatitis C Screening 07/12/2022 Social Influencers of Health Screening 07/12/2022 COVID-19 Vaccine ( - 2023-2 5 season) 2024 Influenza Vaccine (#1) 2024 HIB Vaccines Aged Out No longer eligi ble based on patient's age to complete this topic HPV Vaccines Aged Out No longer eligi ble based on patient's age to complete this topic Hepatitis A Vaccines Aged Out No long er eligible based on patient's age to complete this topic IPV Vaccines Aged Out No longer eligi ble based on patient's age to complete this topic MMR Vaccines Aged Out No longer eligi ble based on patient's age to complete this topic Meningococcal ACWY Vaccine Aged Out N o longer eligible based on patient's age to complete this topic Pneumococcal Vaccine: Pediat rics (0 to 5 Years) and At-Risk Patients (6 to 64 Years) Aged Out No longer eligible b ased on patient's age to complete this topic RSV Immunization Patients Un keke 20 months Aged Out No longer eligible b ased on patient's age to complete this topic Varicella Vaccines Aged Out No longer eligible based on patient's age to complete this topic
--- OUTSIDE RECORDS SUMMARY | 2024-09-20 14:34 | XMS_ITS | Encounter Summary ---
Author Organization [facility] Address [address] [place] [address] Care Team Providers Care Coding Validator Name Role Phone Zari Gibson PA-C Primary Care Provider [phone] Reason for Visit * Reason Onset Date Comments Case Management 08/24/2024 Wellness check i n. Encounter Details Date Type Department Care Team ([facility] st Contact Info) Description 08/24/2024 / TELEPHONE [facility] [address] [place] [phone] Patti Whitaker [address] [place] [address] Opioid type dependence, unspecified (Primary Dx); Former smoker; Posttraumatic stress disorder; Uncomplicated opioid dependence ([facility]-CMS); Encounter for long-term opiate analgesic use Social History Tobacco Use Types Packs/Day Years [...] suspected to have Coronavirus/COVID-19? No / Unsure 07/25/2024 9:56 AM EST documented as of this encounter Nursing Notes * Patti Whitaker - 08/24/2024 2:46 PM EST T/w reached out to pt for a wellness check in. Pt states he's doing well on his recovery. Pt still engaged in religion and doing services. Pt stated he is moving to his own apartment thru [facility], pt expressed his excitement. T/w sent a [employer] gift card request to help pt w furniture. Pt was reminded to reach out as needed for any extra support or resources. documented in this encounter Plan of Treatment Upcoming Encounters Date Type Department Care Team (Late st Contact Info) Description 09/21/2024 2:00 PM EST BH/MH Visits [address] [phone] Patti Whitaker [address] [place] [phone] 09/26/2024 3:30 PM EST BH/MH Visits [address] [phone] Matthew Dalal LCSW [address] [place] [address] 10/24/2024 2:00 PM EDT BH/MH Visits [address] [phone] Etta Andrew [address] [address] documented as of this encounter Visit Diagnoses Diagnosis Opioid type dependence, unspecified- Primary Former smoker Personal history of tobacco use, presenting hazards to health Posttraumatic stress disorder Uncomplicated opioid dependence (HCC-CMS) Opioid type dependence, unspecified Encounter for long-term opiate analgesic use Encounter for long-term (current) use of other medications documented in this encounter Additional Health Concerns Assessment Noted Time PHQ-9 Depression Total Score: 4 09/07/19 24 1:30 PM PST documented as of this encounter Care Teams Coding Validator Relationship Specialty Start Date End Date Zari Gibson PA-C [address] [place] [address] PCP - General Internal Medicine 04/07/22 documented as of this encounter
--- OUTSIDE RECORDS SUMMARY | 2024-09-20 14:34 | XMS_ITS | Encounter Summary ---
Author Organization [facility] Address [address] [place] [address] Care Team Providers Care University Tutor Name Role Phone Zari Gibson PA-C Primary Care Provider Encounter Details Date Type Department Care Team (Latest Contact Info) Description 08/29/2024 Travel Social History Tobacco Use Types Packs/Day Years [...] No / Unsure 08/29/2024 3:14 PM EST documented as of this encounter Plan of Treatment Upcoming Encounters Date Type Department Care Team (Late st Contact Info) Description 09/21/2024 2:00 PM EST BH/MH Visits [address] [phone] Sherman Patti [address] [place] [phone] 09/26/2024 3:30 PM EST BH/MH Visits [facility] [address] [place] [phone] Matthew Dalal LCSW [address] [place] [phone] 10/24/2024 2:00 PM EDT BH/MH Visits [address] [phone] Etta Andrew [address] [address] documented as of this encounter Visit Diagnoses Not on filedocumented in this encounter Additional Health Concerns Assessment Noted Time PHQ-9 Depression Total Score: 4 09/07/19 24 1:30 PM PST documented as of this encounter Care Teams University Tutor Relationship Specialty Start Date End Date Zari Gibson PA-C [address] [place] [phone] PCP - General Internal Medicine 04/07/22 documented as of this encounter
[2024-09-20 22:27] VITALS: BP 112/52; PULSE 57; RESP 18; TEMP 36.7; O2SAT 98
[2024-09-21 00:41] VITALS: BP 123/79; PULSE 53; RESP 16; TEMP 36.6; O2SAT 97
[2024-09-21] MEDS: Lidocaine HCl Viscous 2 % 15 ML SOLUTION MUCOUS MEM (00:49)
[2024-09-21] MEDS: Magnesium Hydrox/Alum Hydrox 30 ML ORAL.SUSP PO (00:49)
--- NOTE | 2024-09-21 01:31 | ED_ITS ---
HPI - Abdominal Pain General Chief Complaint: Abdominal Pain Stated Complaint: Upper Stomach Pain Time Seen by Provider: 09/20/24 23:51 Source: patient Limitations: no limitations History of Present Illness ED Provider: Wanda Riggs PA-C HPI narrative: 54-year-old male presents with epigastric pain times 2-3 weeks. Patient describes his discomfort as indigestion. Denies postprandial symptoms, nausea vomiting or diarrhea. Patient denies that he is constipated, he states he has bowel movements on a regular basis. Denies distention, inability to pass flatus. Related Data Previous Rx's ?Medication ?Instructions ?Recorded benzonatate 100 mg capsule 100 mg PO TID PRN cough #20 caps 05/06/24 sucralfate 100 mg/mL oral 10 ml PO QID PRN indigestion #400 09/21/24 suspension (Carafate) mL Allergies Allergy/AdvReac Type Severity Reaction Status Date / Time sulfamethoxazole Allergy Mild HIVES Verified 09/20/24 12:32 [From Bactrim] trimethoprim [From Bactrim] Allergy Mild HIVES Verified 09/20/24 12:32 Review of Systems Review of Systems Yes all other systems are reviewed and are negative Constitutional: Denies fatigue and Denies fever(s) Cardiovascular: Denies chest pain and Denies dyspnea Respiratory: Denies cough and Denies dyspnea Gastrointestinal: Reports abdominal pain, Denies constipation, Denies diarrhea, Denies nausea and Denies vomiting Endocrine: Denies fatigue PMF Past Medical History Attestation statement: The following information was validated with the patient. Social History Social History (System 01/26/24 @ 14:32 by Kacey Conklin) Advance Directives: No Advance Directives Information Provided: Yes Do you have a plan to hurt others: No Plan Physical Exam ED Vital Signs: Vital Signs - 24 hr 09/20/24 12:30 09/20/24 22:27 09/21/24 00:41 Temperature 97.7 F 98.1 F 97.9 F Pulse Rate 60 57 53 Respiratory Rate 20 18 16 Blood Pressure 102/65 112/52 L 123/79 Pulse Oximetry 96 98 97 Oxygen Delivery Method Room Air Room Air Room Air BMI result Body Mass Index 28.4 Const Other: Alert Orientation/consciousness: patient oriented x3 Resp Effort & Inspection: normal respiratory effort Cardio Other: Normal peripheral perfusion GI Other: Abdomen is soft, nontender nondistended no guarding Skin Other: Warm dry no rash Neuro General: patient oriented x3, gait normal, no focal motor deficits and CN's II- XI intact bilaterally Psych Other: Cooperative Medical Decision Making Medical Decision Making [facility] Narrative: 54-year-old male presents with epigastric pain times 2-3 weeks. Patient describes his discomfort as indigestion. Denies postprandial symptoms, nausea vomiting or diarrhea. Patient denies that he is constipated, he states he has bowel movements on a regular basis. Denies distention, inability to pass flatus. No chronic issues History: Per patient I have considered the following differential diagnoses: Biliary colic, cholecystitis, gastritis, pancreatitis, constipation, bowel obstruction Plan: Given upper abdominal discomfort, I am considering underlying biliary versus gastric versus pancreatic etiology as cause for symptoms. The patient is not having postprandial symptoms to suggest biliary colic, he is having indigestion, this is likely poorly controlled GERD. I suspect he may be constipated despite he denies any is. This could be the trigger for his indigestion. We will obtain a KUB. Screening labs were already obtained from triage and are unremarkable. Thought about bowel obstruction, however he is not having any obstructive symptoms. We will give Maalox and lidocaine I have independently reviewed the following tests: Labs: No leukocytosis, not anemic, no electrolyte abnormality, LFTs normal, viral panel negative KUB:Findings: No pneumoperitoneum or pneumatosis. No abnormal calcifications. No acute fractures. IMPRESSION: Normal bowel gas pattern This document has been electronically signed by: Bryan Rivera MD on 09/21/2024 01:26:42 Lab Data 09/20/24 13:07 09/20/24 13:07 Labs: Lab Results 09/20/24 Range/Units 13:07 WBC 5.9 (4.8-10.8) X10*3/uL RBC 5.99 H (4.60-5.80) X10*6/uL Hgb 15.0 (14.0-18.0) g/dl Hct 45.2 (42.0-52.0) % MCV 75.5 L (80.0-98.0) fL MCH 25.0 L (27.0-33.0) pg MCHC 33.2 (31.0-36.0) g/dl RDW 13.1 (11.0-16.0) % Plt Count 209 (160-400) X10*3/uL MPV 9.6 (9.4-12.4) fL Immature Gran % (Auto) 0.2 (0.0-0.4) % Neut % (Auto) 47.0 (45-73) % Lymph % (Auto) 36.3 (20-40) % Throckmorton % (Auto) 14.3 H (2-11) % Eos % (Auto) 2.0 (0-4) % Baso % (Auto) 0.2 (0-2) % Lymph # (Auto) 2.2 (1.2-4.9) X10*3/uL Throckmorton # (Auto) 0.9 (0.1-1.2) X10*3/uL Eos # (Auto) 0.1 (0.0-0.4) X10*3/uL Baso # (Auto) 0.0 (0.0-0.2) X10*3/uL Abs Immat Gran (auto) 0.01 (0.00-0.03) X10*3/uL Absolute Neuts (auto) 2.8 (2.0-8.3) x10*3/uL Absolute Nucleated RBC 0.000 (0.0-0.012) X10*3/uL Nucleated RBC % (auto) 0.0 (0.0-0.2) /100WBC Sodium 139 (135-145) mmol/L Potassium 4.2 (3.3-5.1) mmol/L Chloride 106 (96-108) mmol/L Carbon Dioxide 26 (22-29) mmol/L Anion Gap 11 L (12-20) BUN 15 (9-16) mg/dL Creatinine 0.98 (0.5-1.4) mg/dL Estim Creat Clear Calc 74.2 Estimated GFR > 60 Random Glucose 87 (60-115) mg/dL Calcium 9.1 (8.4-10.2) mg/dL Total Bilirubin 0.5 (0.0-1.0) mg/dL Direct Bilirubin 0.1 (0.0-0.5) mg/dL AST 44 H (5-37) U/L ALT 33 (0-40) U/L Alkaline Phosphatase 61 (39-117) U/L Total Protein 7.8 (6.5-8.0) g/dL Albumin 4.3 (3.5-5.0) g/dL Lipase 33 (8-78) U/L Influenza Type A (PCR) NEGATIVE (Negative) Influenza Type B (PCR) NEGATIVE (Negative) RSV RNA Qual (PCR) NEGATIVE (Negative) SARS-CoV-2 RNA (RT-PCR) NEGATIVE (Negative) Medications Administered Discontinued Medications Generic Name Dose Route Start Last Admin Trade Name Freq PRN Reason Stop Dose Admin Al Hydroxide/Mg Hydroxide 30 ml 09/21/24 00:32 09/21/24 00:49 Magnesium Hydrox/Alum Hydrox 30 Ml Oral.Susp PO 09/21/24 00:33 30 ml ONCE ONE Administration Lidocaine HCl 15 ml 09/21/24 00:32 09/21/24 00:49 Lidocaine Hcl Viscous 2 % 15 Ml Solution MUCOUS MEM 09/21/24 00:33 15 ml ONCE ONE Administration Discharge Plan Discharge Clinical Impression: GERD (gastroesophageal reflux disease), Constipation Patient Disposition: Home, Self-Care Instructions: Constipation (ED), Gastroesophageal Reflux Disease (ED) Additional Instructions: All of your labs were normal, the x-ray revealed that you are constipated. Constipation can be a trigger for acid reflux or GERD. See home care instructions. Use the Carafate as needed for upper abdominal discomfort. You should purchase utap-yls-svcazek Colace, this is a stool softener, and use it 1 to 2 times a day. In addition you should purchase [id number]-ffw-tvgoyfi MiraLax, and use it 1 to 2 times a day, until your bowel movements regulate. Follow up with your primary care provider as needed. Prescriptions: New sucralfate [Carafate] 100 mg/mL suspension 10 ml PO QID PRN (Reason: indigestion) Qty: 400 0RF Rx Instructions: swish in mouth and swallow; use after food/drink No Action benzonatate 100 mg capsule 100 mg PO TID PRN (Reason: cough) Qty: 20 0RF Print Language: [place]
[2024-09-21 02:24] VITALS: BP 123/79; PULSE 53; RESP 16; TEMP 36.6; O2SAT 97
== END 2024-09-21 02:45 | disposition home or self-care (01) ==
PROVIDERS: Emergency Provider Emergency Medicine
DX: K21.9 Gastro-esophageal reflux disease without esophagitis (principal); K59.00 Constipation, unspecified; Z03.818 Encounter for observation for suspected exposure to other biological agents ruled out; Z79.899 Other long term (current) drug therapy
CPT/HCPCS: 0241U; 36415; 74018; 80048; 80076; 83690; 85025; 99283

== ENCOUNTER → 2024-09-21 00:32 | Outpatient (BNV) | payer MEDICAID, SELFPAY | PROVIDERS: Emergency Provider Emergency Medicine; Visit Provider Radiology Diagnostic Radiology | DX: R10.9 Unspecified abdominal pain (principal) | CPT/HCPCS: 74018 ==

== ENCOUNTER 2024-09-30 05:52 | Emergency (ER) | payer MEDICAID, SELFPAY ==
--- NOTE | 2024-09-30 | ECG_ITS ---
Test Reason : EPI GASTRIC PAIN Blood Pressure : */* mmHG Vent. Rate : 69 BPM Atrial Rate : 69 BPM P-R Int : 144 ms QRS Dur : 104 ms QT Int : 382 ms P-R-T Axes : 37 10 29 degrees QTcB Int : 409 ms Normal sinus rhythm Normal ECG No previous ECGs available Referred By: Generic ED Physician Electronically Signed By: SHITAL CHAPA
--- NOTE | ~2024-09-30 | CT_ITS ---
CLINICAL HISTORY: epigastric pain, N V D CT abdomen and pelvis without contrast Comparison: None Findings: The lung bases are clear. Findings suggest cholecystectomy with a mildly dilated cystic duct remnant. No biliary obstruction. Liver, spleen, pancreas, adrenal glands and kidneys demonstrate no acute process. No radiopaque stones or hydronephrosis. No bowel obstruction, pneumoperitoneum, or pneumatosis. Pelvic contents unremarkable. Normal appendix. No adenopathy. Nonaneurysmal aorta. No fluid collections. The bones are intact. IMPRESSION: No acute findings. This document has been electronically signed by: Noris Robles MD on 09/30/2024 08:16:50
[2024-09-30 06:00] VITALS: BP 143/89; PULSE 75; RESP 18; TEMP 36.7; O2SAT 97; BMI 28.3
[2024-09-30] MEDS: ondansetron HCL 4 MG/2 ML VIAL IVPUSH ×2 (06:32→10:52)
--- NOTE | 2024-09-30 06:43 | ED_ITS ---
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 Patient reports visiting his mother this morning who is admitted to our facility. He began to feel nauseous during his visit and reports 3-4 episodes of vomiting and diarrhea. He admits to epigastric pain x1 month. He states he was evaluated for this approximately 1 week ago. He had an unremarkable workup and sucralfate was sent to his pharmacy however he never picked this medication up. Reports continued abdominal pain. Pain does not radiate. It is constant in nature, worse with eating. Denies ETOH consumptions. Reports remote hx of ilicit substance use, currently on suboxone. Reports history of hepatitis for which he was treated. He reports compliance with all HIV medications. Denies fever, chills, chest pain, flank pain, urinary symptoms, penile discharge/ lesions. Related Data Previous Rx's ?Medication ?Instructions ?Recorded benzonatate 100 mg capsule 100 mg PO TID PRN cough #20 caps 05/06/24 sucralfate 100 mg/mL oral 10 ml PO QID PRN indigestion #400 09/21/24 suspension (Carafate) mL ondansetron 4 mg disintegrating 4 mg PO DAILY PRN nausea and 09/30/24 tablet vomiting 5 days #7 tabs Allergies Allergy/AdvReac Type Severity Reaction Status Date / Time sulfamethoxazole Allergy Mild HIVES Verified 09/30/24 06:03 [From Bactrim] trimethoprim [From Bactrim] Allergy Mild HIVES Verified 09/30/24 06:03 Review of Systems Review of Systems Constitutional: No fever, chills, fatigue, night sweats, weight changes ENT/Mouth: No ear pain, hearing loss, nasal congestion, sinus pain, rhinorrhea, sore throat Eyes: No eye pain, swelling, redness, vision changes, discharge Cardio: No chest pain, palpitations, FONTANEZ, orthopnea, peripheral edema Pulm: No SOB, cough, sputum, wheezing, dyspnea, hemoptysis GI: No hematemesis, constipation, hematochezia, melena, +abd pain, +N/V/D : No irregular bleeding, dysuria, frequency, urgency, hesitancy, hematuria, flank pain, urinary flow changes, urinary incontinence or retention MSK: No back pain, neck pain, joint pain, myalgias Skin: No lesions, rashes Neuro: No weakness, numbness, paresthesias, LOC, dizziness, headache Psych: No anxiety/panic, depression, SI/HI, AH/VH All other systems reviewed and are negative. [facility] Past Medical History Attestation statement: The following information was validated with the patient. Source: old records reviewed and nursing notes reviewed Social History Social History Smoked in Last 30 Days: No Use of substances other than those prescribed or required for medical reasons: No Advance Directives: No Physical Exam ED Vital Signs: Vital Signs - 24 hr 09/30/24 06:00 09/30/24 08:04 09/30/24 10:36 Temperature 98.1 F 98.0 F 100.1 F Pulse Rate 75 70 80 Respiratory Rate 18 22 H 20 Blood Pressure 143/89 H 124/71 134/76 Pulse Oximetry 97 97 95 Oxygen Delivery Method Room Air Room Air Room Air 09/30/24 10:52 Temperature Pulse Rate Respiratory Rate 18 Blood Pressure Pulse Oximetry Oxygen Delivery Method BMI result Body Mass Index 28.3 Hypertensive, vitals otherwise WNL General: well appearing, in no acute distress. Skin: Warm, dry, intact. No rashes or lesions. Head: Normocephalic, atraumatic. EENT: Hearing is intact b/l. Conjunctiva clear. Sclera is anicteric. PERRLA. EOM intact. Moist mucous membranes.? Cardiac: Chest wall symmetric. RRR Lungs: Normal respiratory effort without accessory muscle use. CTA bilaterally. Abdomen: soft, non-tender, non-distended. No rebound tenderness or guarding. Positive BS x4. no cvat. Ext: Upper and lower extremities atraumatic, without tenderness, deformity, swelling or erythema Neuro: AOx3. Normal speech. Ambulating with steady gait. Course Course Course Narrative: 0740 -- CBC without leukocytosis. No left shift. No anemia. H&H stable. Chemistry without acute electrolyte abnormality requiring intervention. BUN slightly elevated to 17 with normal creatinine. Random glucose 116. Liver function at baseline. Lipase WNL. > viral swabs, hepatitis panel, ua, and imaging pending. > receiving IV fluids will trial donnatol/ maalox/ zofran 0904 -- urine does not demonstrate infection. CT abdomen/pelvis shows status post cholecystectomy with mildly dilated cystic duct remnant, no biliary obstruction. Normal liver, spleen, pancreas. Normal kidneys. Normal bowel, no evidence of obstruction or colitis. > ? viral gastroenteritis v gastroenteritis. viral serologies/ hepatitis panel still pending 1046 -- patient has tested negative for covid/ flu/ rsv. hep C antibodies reactive. He does tell me that he has a history of hep C and was treated for this in the past. It is unclear if this is a chronic infection or acute viral pathology. I believe we need to obtain hepatitis-C viral load for confirmation. Given right upper quadrant pain, nausea, vomiting and diarrhea, I reached out to Infectious Disease Dr. Bear regarding recommendation. She agrees with obtaining viral load. This has been ordered. > patient continues to endorse abdominal discomfort and nausea despite GI cocktail. Morphine and Zofran ordered. will re-evaluate. 1502 -- we were finally able to obtain hepatitis-C viral load. this is a send out. we will not receive the results today. he reports improvement in symptoms with morphine and zofran. Besides reactive hepatitic c antibody, his work up is quite unremarkable. I do not foresee me starting him on any treatment for hepatitis today. I feel it is reasonable to discharge patient with symptomatic treatment for gastritis v gastroenteritis. He has a prescription for sucralfate waiting to be picked up at his pharmacy. I will send zofran as well for nausea. Adivsed pepto bismol/ imodium for any diarrhea. he is tolerating PO in ED. > regarding hepatitis viral load, I informed patient that he will be contacts with any concerning results. regardless, he should follow up with infectious disease/ GI. I have provided him with a referral for both. Patient has remained stable throughout ED visit today. Discussed worrisome signs and symptoms and when to return to the ED. All questions answered at this time. Patient is agreeable with disposition and stable for discharge. Medical Decision Making Medical Decision Making [facility] Narrative: 54 year old male with pmhx significant for HIV presents to the ED today for evaluation of nausea and nonbloody vomiting and diarrhea which began acutely this morning around 0530. Patient was hypertensive, vitals are otherwise WNL. He is nontoxic-appearing and in no acute distress. Lying comfortably on exam bed. His exam is quite benign. He was not jaundiced. No scleral icterus. Abdomen is soft, nondistended, nontender to palpation without rebound or guarding. Normoactive bowel sounds x4. No CVAT. Differential diagnosis includes biliary colic, renal colic, nephrolithiasis, gastroenteritis. Abdominal exam without peritoneal signs. No evidence of acute abdomen at this time. Well appearing. Moderate suspicion for acute hepatobiliary disease (including acute cholecystitis). Less likely to represent acute pancreatitis, PUD (including perforation), acute infectious processes (pneumonia, hepatitis, pyelonephritis), atypical appendicitis, vascular catastrophe, bowel obstruction or viscus perforation. Presentation not consistent with other acute, emergent causes of abdominal pain at this time. Plan: labs, UA, zofran, IVF, imaging, re-evaluation Differential Diagnosis Differential Diagnoses: The differential diagnosis associated with the presentation includes as above. Admission/Observation not indicated. Consult Healthcare Provider Management of the patient was discussed with: Product Management Consultant infectious disease - dr. davis Lab Data [facility] Lab Attestation statement: I reviewed the patient's lab results. as above. 09/30/24 06:34 09/30/24 06:34 Labs: Lab Results 09/30/24 09/30/24 Range/Units 06:34 08:24 WBC 9.7 (4.8-10.8) X10*3/uL RBC 5.82 H (4.60-5.80) X10*6/uL Hgb 14.8 (14.0-18.0) g/dl Hct 44.0 (42.0-52.0) % MCV 75.6 L (80.0-98.0) fL MCH 25.4 L (27.0-33.0) pg MCHC 33.6 (31.0-36.0) g/dl RDW 13.2 (11.0-16.0) % Plt Count 182 (160-400) X10*3/uL MPV 10.1 (9.4-12.4) fL Absolute Nucleated RBC 0.000 (0.0-0.012) X10*3/uL Nucleated RBC % (auto) 0.0 (0.0-0.2) /100WBC Sodium 141 (135-145) mmol/L Potassium 3.9 (3.3-5.1) mmol/L Chloride 105 (96-108) mmol/L Carbon Dioxide 26 (22-29) mmol/L Anion Gap 14 (12-20) BUN 17 H (9-16) mg/dL Creatinine 1.00 (0.5-1.4) mg/dL Estim Creat Clear Calc 72.7 Estimated GFR > 60 Random Glucose 116 H (60-115) mg/dL Calcium 9.3 (8.4-10.2) mg/dL Total Bilirubin 0.3 (0.0-1.0) mg/dL Direct Bilirubin 0.1 (0.0-0.5) mg/dL AST 41 H (5-37) U/L ALT 38 (0-40) U/L Alkaline Phosphatase 65 (39-117) U/L Total Protein 7.4 (6.5-8.0) g/dL Albumin 4.0 (3.5-5.0) g/dL Lipase 31 (8-78) U/L Urine Color Yellow Urine Appearance Clear Urine pH 5.5 (5.0-9.0) Ur Specific [place] 1.020 (1.005-1.025) Urine Protein Negative (Neg-Trace) mg/dL Urine Glucose (UA) Negative (Negative) mg/dL Urine Ketones Negative (Negative) mg/dL Urine Blood Negative (Negative) Urine Nitrite Negative (Negative) Ur Leukocyte Esterase Negative (Negative) Hepatitis A IgM Ab Nonreactive (Nonreactive) Hep Bs Antigen Negative (Negative) Hep Bs Antibody NONREACTIVE (Nonreactive) Hep B Core Total Ab Reactive (Nonreactive) Hepatitis C Ab (EIA) Reactive H (Nonreactive) Influenza Type A (PCR) NEGATIVE (Negative) Influenza Type B (PCR) NEGATIVE (Negative) RSV RNA Qual (PCR) NEGATIVE (Negative) SARS-CoV-2 RNA (RT-PCR) NEGATIVE (Negative) Independent Interpretation I performed an independent interpretation of an: CT Scan Interpretation: CT A/P without pancreatic stranding, no CBD dilation, no bowel obstruction Radiology Impression Discussion of test interpretation with radiology: I have reviewed the radiologist's reading. Radiologist Impression: Procedure(s): CT abdomen pelvis wo IV con Accession Number(s): [id number] cc: Physician,Unknown ; Jessica Campos~ Report Number: [id number]: Total DLP = 498.00 mGy-cm CLINICAL HISTORY: epigastric pain, N V D CT abdomen and pelvis without contrast Comparison: None Findings: The lung bases are clear. Findings suggest cholecystectomy with a mildly dilated cystic duct remnant. No biliary obstruction. Liver, spleen, pancreas, adrenal glands and kidneys demonstrate no acute process. No radiopaque stones or hydronephrosis. No bowel obstruction, pneumoperitoneum, or pneumatosis. Pelvic contents unremarkable. Normal appendix. No adenopathy. Nonaneurysmal aorta. No fluid collections. The bones are intact. IMPRESSION: No acute findings. This document has been electronically signed by: Noris Robles MD on 09/30/2024 08:16:50 External Record Review External record reviewed: Inpatient record Prescription Management I considered prescription management with: Pain Medication Chronic Conditions Patient?s care impacted by: Other (HIV, hepatitis) Social Determinants Patient?s care significantly limited by Social Determinants of Health including: Other Social Determinant of Health Medications Administered Discontinued Medications Generic Name Dose Route Start Last Admin Trade Name Freq PRN Reason Stop Dose Admin Al Hydroxide/Mg Hydroxide 30 ml 09/30/24 07:39 09/30/24 08:04 Magnesium Hydrox/Alum Hydrox 30 Ml Oral.Susp PO 09/30/24 07:40 30 ml ONCE ONE Administration Belladonna Alkaloids/Phenobarbital 10 ml 09/30/24 07:39 09/30/24 08:03 Phenobarb/Hyoscy/Atropine/Scop 10 Ml Elixir PO 09/30/24 07:40 10 ml ONCE ONE Administration Sodium Chloride 1,000 mls @ 999 mls/hr 09/30/24 06:30 09/30/24 09:36 Ns IV 09/30/24 07:30 Infused .Q1H1M RAY Infusion Morphine Sulfate 4 mg 09/30/24 10:13 09/30/24 10:52 Morphine Sulfate 4 Mg/Ml Cartridge IVPUSH 09/30/24 10:14 4 mg ONCE ONE Administration Protocol Ondansetron HCl 4 mg 09/30/24 06:28 09/30/24 06:32 Ondansetron Hcl 4 Mg/2 Ml Vial IVPUSH 09/30/24 06:29 4 mg ONCE ONE Administration Ondansetron HCl 4 mg 09/30/24 10:23 09/30/24 10:52 Ondansetron Hcl 4 Mg/2 Ml Vial IVPUSH 09/30/24 10:24 4 mg ONCE ONE Administration Critical Care Time Critical Care Time Critical Care Time: No Discharge Plan Discharge Clinical Impression: Gastroenteritis, Gastritis Patient Disposition: Home, Self-Care Instructions: Gastritis (ED), Gastroenteritis (DC) Additional Instructions: Your lab work up today is reassuring. Your urine test is negative for infection. The CT scan of your abdomen is normal. You have a prescription for sucralfate at your pharmacy ready to be picked up. Take this for your abdominal pain. You likely have a viral stomach bug. The treatment for this is supportive care. The recommendation is rest and lots of oral hydration.? For the next 24 hours, stick to a JIMMY diet (bananas rice, applesauce, tea, and toast) Zofran is an anti-nausea medication. This has been sent to your pharmacy for you to take as needed for nausea.? You can also try over the counter Pepto Bismol or Imodium as needed for upset stomach and diarrhea.? Your blood work has also been sent out to test for acute hepatitis infection. You will be called in a few days with any positive results. Regardless of results, you need to follow up with GI and infectious disease. I have provided you with referrals for both. Call them to establish care. They will not call you. If you develop new or worsening symptoms call 911 or come back to the ER for further evaluation. Prescriptions: New ondansetron 4 mg tablet,disintegrating 4 mg PO DAILY PRN (Reason: nausea and vomiting) 5 Days Qty: 7 0RF No Action sucralfate [Carafate] 100 mg/mL suspension 10 ml PO QID PRN (Reason: indigestion) Qty: 400 0RF Rx Instructions: swish in mouth and swallow; use after food/drink benzonatate 100 mg capsule 100 mg PO TID PRN (Reason: cough) Qty: 20 0RF Referrals: [facility] [place] [facility] [Provider Group] [facility] [place] [facility] [Provider Group] Print Language: Swedish
[2024-09-30] MEDS: 0.9 % Sodium Chloride 1,000 ML 999 ML IV (06:47)
[2024-09-30 06:52] LABS: Alanine Aminotransferase 38 U/L (0-40); Alkaline Phosphatase 65 U/L (39-117); Anion Gap 14 (12-20); Aspartate Amino Transferase 41 U/L (5-37); Bilirubin Direct 0.1 mg/dL (0.0-0.5); Bilirubin Total 0.3 mg/dL (0.0-1.0); Blood Urea Nitrogen 17 mg/dL (9-16); Calcium 9.3 mg/dL (8.4-10.2); Carbon Dioxide 26 mmol/L (22-29); Chloride 105 mmol/L (96-108); Creatinine Clr Calc Pharmacy 72.7; Estimated Glomerular Filt Rate > 60; Glucose Random 116 mg/dL (60-115); Lipase 31 U/L (8-78); Potassium 3.9 mmol/L (3.3-5.1); Sodium 141 mmol/L (135-145); Total Protein 7.4 g/dL (6.5-8.0)
[2024-09-30 06:55] LABS: Hemoglobin 14.8 g/dl (14.0-18.0); Mean Corpuscular HGB Conc 33.6 g/dl (31.0-36.0); Mean Corpuscular Hemoglobin 25.4 pg (27.0-33.0); Mean Corpuscular Volume 75.6 fL (80.0-98.0); Mean Platelet Volume 10.1 fL (9.4-12.4); Platelet Count 182 X10*3/uL (160-400); Red Blood Count 5.82 X10*6/uL (4.60-5.80); Red Cell Distribution Width 13.2 % (11.0-16.0); White Blood Count 9.7 X10*3/uL (4.8-10.8)
[2024-09-30] MEDS: PHENobarb/Hyoscy/Atropine/Scop 10 ML ELIXIR PO (08:03)
[2024-09-30 08:04] VITALS: BP 124/71; PULSE 70; RESP 22; TEMP 36.7; O2SAT 97
[2024-09-30] MEDS: Magnesium Hydrox/Alum Hydrox 30 ML ORAL.SUSP PO (08:04)
[2024-09-30 08:32] LABS: Appearance Urine Clear; Color Urine Yellow; Glucose Urine UA Negative (Negative); Leukocyte Esterase Urine Negative (Negative); Nitrite Urine Negative (Negative); PH 5.5 (5.0-9.0); Urine Blood Negative (Negative); Urine Ketones Negative (Negative); Urine Protein Negative (Neg-Trace)
[2024-09-30 09:08] LABS: HBS Num1 3.11 mIU/mL (0-7.99); HBc Num1 5.83 S/CO (0.00-0.79); HBsAGNum1 0.46 S/CO (0.00-0.99); Hepatitis A Antibody IgM 0.14 Index (0-0.79); Hepatitis B Surface Antigen Negative (Negative); ~HepC Num1 2.94 S/CO (0.00-0.79); ~Hepatitis A Antibody IgM Nonreactive (Nonreactive); ~Hepatitis B Surface Antibody NONREACTIVE (Nonreactive); ~Hepatitis C Antibody Reactive (Nonreactive)
[2024-09-30 09:31] LABS: Influenza A PCR NEGATIVE (Negative); Influenza B PCR NEGATIVE (Negative); Resp Syncy Virus RNA Qual PCR NEGATIVE (Negative); SARS COV2 PCR INHOUSE NEGATIVE (Negative)
[2024-09-30 10:00] LABS: HBc Num2 5.52 S/CO; HBc Num3 5.62 S/CO; Hepatitis B Core Antibody Reactive (Nonreactive)
--- NOTE | 2024-09-30 10:31 | MHC.EDTECH ---
Patient refused to have labs drawn. He stated he is to nauseous.
[2024-09-30 10:36] VITALS: BP 134/76; PULSE 80; RESP 20; TEMP 37.8; O2SAT 95
[2024-09-30 10:52] VITALS: RESP 18
[2024-09-30] MEDS: Morphine Sulfate 4 MG/ML CARTRIDGE IVPUSH (10:52)
[2024-09-30 14:00] VITALS: BP 128/76; PULSE 76; RESP 18; TEMP 37.4; O2SAT 95
[2024-09-30 15:20] VITALS: BP 128/76; PULSE 76; RESP 18; TEMP 37.4; O2SAT 95
[2024-10-01 11:14] LABS: Hepatitis B Core Antibody IgM NON-REACTIVE (NON-REACTIVE)
[2024-10-02 12:34] LABS: HCV Log PCR <1.18 NOT DETECTED Log IU/mL (NOT DETECTED); HepC Viral Load <15 NOT DETECTED IU/mL (NOT DETECTED)
== END 2024-09-30 15:21 | disposition home or self-care (01) ==
PROVIDERS: Physician Assistant Medical; Emergency Provider Emergency Medicine
DX: K52.9 Noninfective gastroenteritis and colitis, unspecified (principal); K29.70 Gastritis, unspecified, without bleeding; R10.13 Epigastric pain; R11.2 Nausea with vomiting, unspecified; B20 Human immunodeficiency virus [HIV] disease; F11.20 Opioid dependence, uncomplicated; Z03.818 Encounter for observation for suspected exposure to other biological agents ruled out; Z79.899 Other long term (current) drug therapy
CPT/HCPCS: 0241U; 36415; 74176; 80053; 81003; 82248; 83690; 85027; 86704; 86705; 86706; 86709; 86803; 87340; 87522; 93005; 96361; 96374; 96375; 96376; 99284; 99285; J2270; J2405

== ENCOUNTER → 2024-09-30 06:24 | Outpatient (BNV) | payer MEDICAID, SELFPAY | PROVIDERS: Emergency Provider Emergency Medicine; Visit Provider Internal Medicine | DX: R10.13 Epigastric pain (principal) | CPT/HCPCS: 93010 ==

== ENCOUNTER → 2024-09-30 07:25 | Outpatient (BNV) | payer MEDICAID, SELFPAY | PROVIDERS: Emergency Provider Emergency Medicine; Visit Provider Radiology Diagnostic Radiology | DX: R10.13 Epigastric pain (principal) | CPT/HCPCS: 74176 ==